=== PATIENT | female | born 1995 | race African-American/Black ===

== ENCOUNTER 2020-01-22 20:51 | Emergency (ER) | payer OTHER | END 2020-01-22 22:18 | disposition left against medical advice (07) | LOC: EMS 20:53 | DX: R21 Rash and other nonspecific skin eruption (principal); Z53.21 Procedure and treatment not carried out due to patient leaving prior to being seen by health care provider ==

== ENCOUNTER 2023-10-23 21:59 | Inpatient (IN) | payer MEDICAID, OTHER ==
[~2023-10-23] VITALS: Ht 172.7 cm; Wt 77.3 kg
[~2023-10-23 21:59] MED LIST: OLAN10TA74 PO
[2023-10-23 22:42] LABS: BASOPHILS % (AUTO) 0.3 % (0.0-2.0); EOSINOPHILS % (AUTO) 0.4 % (1.0-6.0); HEMATOCRIT 27.4 % (36-46); HEMOGLOBIN 8.9 g/dL (12.0-16.0); LYMPHOCYTES # (AUTO) 1.3 K/uL (1.0-4.8); MEAN CORPUSCULAR HEMOGLOBIN 28.6 pg (26.0-34.0); MEAN CORPUSCULAR HGB CONC 32.5 G/dL (31.0-37.0); MEAN CORPUSCULAR VOLUME 88 fL (80-100); MONOCYTES # (AUTO) 1.2 K/uL (0.1-1.0); MONOCYTES % (AUTO) 7.4 % (2.0-9.0); NEUTROPHILS # (AUTO) 13.6 K/uL (1.8-7.7); NEUTROPHILS % (AUTO) 83.9 % (40.0-70.0); PLATELET COUNT (AUTO) 272 K/uL (150-450); RED BLOOD CELL COUNT(AUTO) 3.12 MIL/uL (4.00-5.20); WHITE BLOOD COUNT (AUTO) 16.2 K/uL (4.5-11.0)
[2023-10-23 23:01] LABS: ANION GAP 10 mmol/L (8-16); CARBON DIOXIDE 25 mmol/L (22-29); CHLORIDE 104 mmol/L (98-107); CREATININE 0.87 mg/dL (0.60-1.30); GLOMERULAR FILTR. RATE CALC > 60 mL/min (>60); GLUCOSE,RANDOM 106 mg/dL (70-110); POTASSIUM 3.6 mmol/L (3.5-5.1); SODIUM SERUM 139 mmol/L (136-145); UREA NITROGEN, BLOOD 13 mg/dL (7-18)
[2023-10-23 23:06] LABS: ALANINE AMINOTRANSFERASE 41 U/L (12-78); ALBUMIN 2.9 g/dL (3.4-5.0); ALKALINE PHOSPHATASE 59 U/L (46-116); ASPARTATE AMINOTRANSFERASE 59 U/L (15-37); BILIRUBIN,TOTAL 0.8 mg/dL (0.1-1.0); TOTAL PROTEIN, SERUM 6.4 g/dL (6.4-8.2)
[2023-10-23 23:16] LABS: ALCOHOL, BLOOD (SERUM) < 3 mg/dL (0-10)
[2023-10-24] MEDS: PIPERACILLIN/TAZO 3.375 GM/D5W 50 ML IV ONE (02:16)
[2023-10-24] MEDS: SODIUM CHLORIDE 0.9% 2,300 ML IV ONE (02:19)
[2023-10-24] MEDS: VANCOMYCIN HCL 1.5 GM in DEXTROSE 5%-WATER 250 ML IV ONE ×2 (02:20→20:58)
[2023-10-24] MEDS: SODIUM CHLORIDE 0.9% 1,000 ML IV ONE (02:30)
[2023-10-24 02:37] LABS: COVID AG,FIA SOURCE NASAL SWAB
[2023-10-24 02:44] LABS: LACTIC ACID 0.5 mmol/L (0.4-2.0)
[2023-10-24 03:07] LABS: SARS-COV2 (COVID) ANTIGEN,FIA Negative (Negative)
[2023-10-24] MEDS: LORazepam 2 MG/ML VIAL IVP ONE ×2 (04:38→20:16)
[2023-10-24] MEDS: HALOPERIDOL LACTATE 5 MG/ML VIAL IVP ONE (04:38)
[2023-10-24 08:20] VITALS: BP 104/48; PULSE 97; RESP 18; TEMP 99.5
[2023-10-24 08:47] VITALS: BP 127/77; PULSE 85; RESP 19; TEMP 98.1
[2023-10-24 16:24] VITALS: BP 120/64; PULSE 90; RESP 18; TEMP 98
[2023-10-24] MEDS: OxyCODONE HCL/ACETAMINOPHEN 5-325 MG TABLET PO PRN (18:28)
[2023-10-24 19:30] VITALS: BP 117/59; PULSE 95; RESP 18; TEMP 98.9
[2023-10-24] MEDS: HALOPERIDOL LACTATE 5 MG/ML VIAL IM ONE (20:19)
[2023-10-24] MEDS ORDERED: SODIUM CHLORIDE 0.9% 500 ML IV ONE (20:51)
[2023-10-25 05:30] VITALS: BP 147/70; PULSE 83; RESP 20; TEMP 98.4
[2023-10-25 07:42] VITALS: BP 125/73; PULSE 75; RESP 18; TEMP 98.2
[2023-10-25] MEDS ORDERED: VANCOMYCIN HCL 1 GM in DEXTROSE 5%-WATER 250 ML IV SCH (08:00)
[2023-10-25] MEDS: VANCOMYCIN HCL 750 MG in DEXTROSE 5%-WATER 250 ML IV SCH (08:52)
[2023-10-25] MEDS ORDERED: IPRATROPIUM BROMIDE 0.5 MG/2.5 ML NEB SOLUTION NEB PRN (10:00)
[2023-10-25] MEDS ORDERED: MAGNESIUM HYDROXIDE SUSPENSION 30 ML UDCUP PO PRN (10:00)
[2023-10-25] MEDS ORDERED: BISACODYL 10 MG RECTAL RECTAL SUPPOSITORY PR PRN (10:00)
[2023-10-25] MEDS ORDERED: MORPHINE SULFATE 2 MG/ML SYRINGE IVP PRN (10:00)
[2023-10-25] MEDS ORDERED: HYDROCODONE/ACETAMINOPHEN 5-325 MG TABLET PO PRN (10:00)
[2023-10-25] MEDS ORDERED: ALBUTEROL SULFATE 2.5 MG/0.5 ML NEB SOLUTION NEB PRN (10:00)
[2023-10-25] MEDS ORDERED: ONDANSETRON HCL 4 MG/2 ML VIAL IVP PRN (10:00)
[2023-10-25] MEDS ORDERED: ACETAMINOPHEN 325 MG TABLET PO PRN (10:00)
[2023-10-25 15:26] VITALS: BP 106/53; PULSE 81; RESP 18; TEMP 98.3
[2023-10-25] MEDS: HEPARIN SODIUM,PORCINE 5,000 UNITS/ML VIAL SQ SCH (16:00)
[2023-10-25] MEDS: OLANZapine 10 MG TABLET PO SCH (20:52)
[2023-10-25] MEDS ORDERED: OLANZapine 10 MG TABLET PO SCH (21:00)
[2023-10-26 04:43] LABS: APPEARANCE,URINE CLEAR (CLEAR); BILIRUBIN,URINE NEGATIVE (NEGATIVE); COLOR,URINE COLORLESS (YELLOW); GLUCOSE, URINE (UA) NEGATIVE (NEGATIVE); KETONES,URINE NEGATIVE (NEGATIVE); LEUKOCYTE ESTERASE ,URINE NEGATIVE (NEGATIVE); NITRATE,URINE NEGATIVE (NEGATIVE); OCCULT BLOOD,URINE NEGATIVE (NEGATIVE); PROTEIN,URINE NEGATIVE (NEGATIVE); SPECIFIC GRAVITIY, URINE 1.008 (1.003-1.030); UROBILINOGEN,URINE <=1.0 mg/dL (<=1.0)
[2023-10-26 04:48] LABS: ALCOHOL, URINE DRUG SCREEN NEGATIVE (NEGATIVE); AMPHET/METH SCREEN,URINE NEGATIVE (NEGATIVE); BARBITURATE SCREEN, URINE NEGATIVE (NEGATIVE); BENZODIAZEPINES SCREEN,URINE NEGATIVE (NEGATIVE); CANNABINOID SCREEN,URINE NEGATIVE (NEGATIVE); COCAINE SCREEN,URINE NEGATIVE (NEGATIVE); METHADONE SCREEN, URINE NEGATIVE (NEGATIVE); OPIATE SCREEN,URINE NEGATIVE (NEGATIVE); PHENCYCLIDINE SCREEN,URINE NEGATIVE (NEGATIVE)
[2023-10-26 07:27] LABS: ANION GAP 7 mmol/L (8-16); CALCIUM, TOTAL 8.3 mg/dL (8.8-10.5); CARBON DIOXIDE 27 mmol/L (22-29); CHLORIDE 105 mmol/L (98-107); CREATININE 0.65 mg/dL (0.60-1.30); GLOMERULAR FILTR. RATE CALC > 60 mL/min (>60); GLUCOSE,RANDOM 98 mg/dL (70-110); POTASSIUM 3.7 mmol/L (3.5-5.1); SODIUM SERUM 139 mmol/L (136-145); UREA NITROGEN, BLOOD 11 mg/dL (7-18); VANCOMYCIN,RANDOM 2.3 mcg/mL (25.0-50.0)
[2023-10-26 08:00] VITALS: BP 123/81; PULSE 79; RESP 20; TEMP 98
[2023-10-26] MEDS: PANTOPRAZOLE SODIUM 40 MG DR TABLET PO SCH (08:20)
[2023-10-26 12:00] VITALS: BP 110/67; PULSE 75; RESP 20; TEMP 97.5
[2023-10-26 15:00] VITALS: BP 122/67; PULSE 76; RESP 18; TEMP 97.6
[2023-10-26 19:21] VITALS: BP 115/60; PULSE 81; RESP 18; TEMP 98.1
[2023-10-26] MEDS: ZOLPIDEM TARTRATE 5 MG TABLET PO PRN (21:57)
[2023-10-27 08:17] VITALS: BP 108/63; PULSE 65; RESP 20; TEMP 98.4
[2023-10-27] MEDS: DOXYCYCLINE HYCLATE 100 MG TABLET PO SCH (21:15)
[2023-10-27 23:26] VITALS: BP 110/59; PULSE 72; RESP 18; TEMP 98.1
[2023-10-28 06:56] VITALS: BP 113/73; PULSE 62; RESP 18; TEMP 98.5
[2023-10-28 08:08] VITALS: BP 117/71; PULSE 64; RESP 18; TEMP 98.1
[2023-10-28 16:01] VITALS: BP 109/65; PULSE 62; RESP 18; TEMP 97.8
[2023-10-28 16:04] VITALS: BP 112/66; PULSE 62; RESP 18; TEMP 97.8
[2023-10-28 20:33] VITALS: BP 113/67; PULSE 64; RESP 18; TEMP 98.4
[2023-10-29 04:10] VITALS: BP 114/59; PULSE 75; RESP 18; TEMP 98.5
[2023-10-29 08:19] VITALS: BP 114/62; PULSE 68; RESP 18; TEMP 98.2
[2023-10-29 15:00] VITALS: BP 115/62; PULSE 69; RESP 20; TEMP 98.3
[2023-10-29 19:26] VITALS: BP 122/66; PULSE 70; RESP 20; TEMP 98.4
[2023-10-30 05:38] VITALS: BP 115/59; PULSE 63; RESP 20; TEMP 98.2
[2023-10-30 08:30] VITALS: BP 124/77; PULSE 83; RESP 20; TEMP 98.2
[2023-10-30 12:32] LABS: BASOPHILS % (AUTO) 0.6 % (0.0-2.0); EOSINOPHILS % (AUTO) 2.4 % (1.0-6.0); HEMATOCRIT 31.7 % (36-46); HEMOGLOBIN 10.3 g/dL (12.0-16.0); LYMPHOCYTES % (AUTO) 42.1 % (22.0-44.0); MEAN CORPUSCULAR HGB CONC 32.5 G/dL (31.0-37.0); MEAN CORPUSCULAR VOLUME 89 fL (80-100); MONOCYTES # (AUTO) 0.4 K/uL (0.1-1.0); MONOCYTES % (AUTO) 9.3 % (2.0-9.0); NEUTROPHILS # (AUTO) 2.2 K/uL (1.8-7.7); NEUTROPHILS % (AUTO) 45.6 % (40.0-70.0); PLATELET COUNT (AUTO) 423 K/uL (150-450); RED BLOOD CELL COUNT(AUTO) 3.56 MIL/uL (4.00-5.20); RED CELL DISTRIBUTION WIDTH 13.4 % (11.5-14.5); WHITE BLOOD COUNT (AUTO) 4.7 K/uL (4.5-11.0)
[2023-10-30 12:38] LABS: ANION GAP 5 mmol/L (8-16); CARBON DIOXIDE 30 mmol/L (22-29); CHLORIDE 103 mmol/L (98-107); CREATININE 0.79 mg/dL (0.60-1.30); GLOMERULAR FILTR. RATE CALC > 60 mL/min (>60); GLUCOSE,RANDOM 83 mg/dL (70-110); POTASSIUM 4.3 mmol/L (3.5-5.1); SODIUM SERUM 138 mmol/L (136-145); UREA NITROGEN, BLOOD 19 mg/dL (7-18)
[2023-10-30 12:46] LABS: ALANINE AMINOTRANSFERASE 38 U/L (12-78); ALBUMIN 3.1 g/dL (3.4-5.0); ALKALINE PHOSPHATASE 44 U/L (46-116); ASPARTATE AMINOTRANSFERASE 26 U/L (15-37); BILIRUBIN,TOTAL 0.3 mg/dL (0.1-1.0); TOTAL PROTEIN, SERUM 7.4 g/dL (6.4-8.2)
[2023-10-30 16:06] VITALS: BP 99/64; PULSE 77; RESP 20; TEMP 98.1
[2023-10-30 16:07] VITALS: BP 103/48
[2023-10-30 19:45] VITALS: BP 101/54; PULSE 72; RESP 18; TEMP 98.2
[2023-10-31 04:45] VITALS: BP 105/56; PULSE 62; RESP 18; TEMP 98.3
[2023-10-31 08:00] VITALS: BP 115/53; PULSE 60; RESP 17; TEMP 98.3
[2023-10-31 19:36] VITALS: BP 112/63; PULSE 87; RESP 18; TEMP 98
[2023-11-01 05:12] VITALS: BP 102/65; PULSE 75; RESP 18; TEMP 98
[2023-11-01 08:30] VITALS: BP_SYST 112; BP_SYST 117; BP_DIAS 61; BP_DIAS 68; PULSE 64; PULSE 76; RESP 18; TEMP 98.4
[2023-11-01 15:22] VITALS: BP 114/64; PULSE 68; RESP 18; TEMP 98.3
[2023-11-01 20:02] VITALS: BP 111/64; PULSE 81; RESP 18; TEMP 98.1
[2023-11-02 05:07] VITALS: BP 110/65; PULSE 72; RESP 18; TEMP 98
[2023-11-02 07:25] VITALS: BP 102/79; PULSE 79; RESP 18; TEMP 98.7
[2023-11-02 16:14] VITALS: BP 106/56; PULSE 79; RESP 18; TEMP 98.5
[2023-11-02 17:45] LABS: COVID AG,FIA SOURCE NASAL SWAB
[2023-11-02 18:05] LABS: SARS-COV2 (COVID) ANTIGEN,FIA Negative (Negative)
== END 2023-11-02 19:52 | DRG 383 ==
LOC: EMS 21:59 → 6S 10-24 07:18
PROVIDERS: ADMIT Hospitalist; ATTEND Hospitalist
DX: L03.115 Cellulitis of right lower limb (principal); R65.10 Systemic inflammatory response syndrome (SIRS) of non-infectious origin without acute organ dysfunction; F29 Unspecified psychosis not due to a substance or known physiological condition; D64.9 Anemia, unspecified; F20.9 Schizophrenia, unspecified; Z20.822 Contact with and (suspected) exposure to COVID-19; F19.10 Other psychoactive substance abuse, uncomplicated; Z79.899 Other long term (current) drug therapy; Z88.0 Allergy status to penicillin; Z59.00 Homelessness unspecified
CPT/HCPCS: 70486; 71045; 80048; 80053; 80202; 80307; 81003; 83605; 84145; 84703; 85025; 87040; 99285; G0378; G0480; J1630; J1644; J2060; J2543; J3370; J7030; J7040; J7060; 36415-L1; 36415-TC

== ENCOUNTER 2023-11-02 15:18 | Inpatient (IN) | payer MEDICAID ==
[~2023-11-02] VITALS: Ht 172.7 cm; Wt 76.4 kg
[2023-11-02] MEDS ORDERED: LORazepam 2 MG TABLET PO PRN (17:45)
[2023-11-02] MEDS ORDERED: ZOLPIDEM TARTRATE 10 MG TABLET PO PRN (17:45)
[2023-11-02] MEDS ORDERED: HALOPERIDOL 5 MG TABLET PO PRN (17:45)
[2023-11-02 21:05] VITALS: BP 123/60; PULSE 72; RESP 18; TEMP 97.8; O2SAT 100
[2023-11-02] MEDS ORDERED: BACITRACIN 28 GM OINTMENT TP PRN (22:30)
[2023-11-02] MEDS ORDERED: LOPERAMIDE HCL 2 MG CAPSULE PO PRN (22:30)
[2023-11-02] MEDS ORDERED: MAGNESIUM HYDROXIDE SUSPENSION 30 ML UDCUP PO PRN (22:30)
[2023-11-02] MEDS ORDERED: PETROLATUM,WHITE 28 GM JELLY TP PRN (22:30)
[2023-11-02] MEDS ORDERED: OMEPRAZOLE 20 MG CAPSULE PO PRN (22:30)
[2023-11-02] MEDS ORDERED: MAG HYDROX/ALUMINUM HYD/SIMETH ES 30 ML SUSPENSION UDCUP PO PRN (22:30)
[2023-11-02] MEDS ORDERED: CloNIDine HCL 0.1 MG TABLET PO PRN (22:30)
[2023-11-02] MEDS ORDERED: ONDANSETRON HCL 4 MG TABLET PO PRN (22:30)
[2023-11-02] MEDS ORDERED: BENZOCAINE/MENTHOL LOZENGE PO PRN (22:30)
[2023-11-02] MEDS ORDERED: IBUPROFEN 600 MG TABLET PO PRN (22:30)
[2023-11-02] MEDS ORDERED: DOCUSATE SODIUM 100 MG CAPSULE PO PRN (22:30)
[2023-11-02] MEDS ORDERED: ALBUTEROL SULFATE HFA 90 MCG/PUFF 8 GM INHALER IH PRN (22:30)
[2023-11-02] MEDS ORDERED: ACETAMINOPHEN 325 MG TABLET PO PRN (22:30)
[2023-11-03 09:24] VITALS: BP 117/70; PULSE 80; RESP 16; TEMP 98; O2SAT 95
[2023-11-03 20:22] VITALS: BP 121/65; PULSE 80; RESP 18; TEMP 97.8; O2SAT 98
[2023-11-03 20:38] VITALS: BP 121/66; PULSE 80; RESP 19; TEMP 97.8; O2SAT 99
[2023-11-03] MEDS: OLANZapine 10 MG TABLET PO SCH (20:41)
[2023-11-04 08:13] VITALS: BP 100/60; PULSE 87; RESP 18; TEMP 97.6; O2SAT 100
[2023-11-04 19:17] LABS: APPEARANCE,URINE CLEAR (CLEAR); BILIRUBIN,URINE NEGATIVE (NEGATIVE); COLOR,URINE LIGHT YELLOW (YELLOW); GLUCOSE, URINE (UA) NEGATIVE (NEGATIVE); KETONES,URINE NEGATIVE (NEGATIVE); LEUKOCYTE ESTERASE ,URINE NEGATIVE (NEGATIVE); NITRATE,URINE NEGATIVE (NEGATIVE); OCCULT BLOOD,URINE NEGATIVE (NEGATIVE); PROTEIN,URINE NEGATIVE (NEGATIVE); SPECIFIC GRAVITIY, URINE 1.014 (1.003-1.030); UROBILINOGEN,URINE <=1.0 mg/dL (<=1.0)
[2023-11-04 20:30] VITALS: BP 122/72; PULSE 83; RESP 17; TEMP 97; O2SAT 100
[2023-11-05 08:31] VITALS: BP 102/60; PULSE 69; RESP 17; TEMP 97.6; O2SAT 99
== END 2023-11-05 13:05 | disposition home or self-care (01) | DRG 750 ==
LOC: B2S 20:30
PROVIDERS: ADMIT Psychiatry & Neurology Psychiatry; ATTEND Psychiatry & Neurology Psychiatry
DX: F20.9 Schizophrenia, unspecified (principal); L03.116 Cellulitis of left lower limb; F15.90 Other stimulant use, unspecified, uncomplicated; F41.9 Anxiety disorder, unspecified; Z20.822 Contact with and (suspected) exposure to COVID-19; G47.00 Insomnia, unspecified; K59.00 Constipation, unspecified; K21.9 Gastro-esophageal reflux disease without esophagitis
CPT/HCPCS: 81003